=== PATIENT | female | born 1985 | race Caucasian/White ===

== ENCOUNTER 2018-07-27 05:45 | Day surgery (SDC) | payer OTHER ==
[2018-07-27] MEDS ORDERED: CEFAZOLIN 1 GM INJ (07:00)
[2018-07-27] MEDS ORDERED: METOCLOPRAMIDE 10 MG INJ (07:00)
[2018-07-27] MEDS ORDERED: DEXAMETHASONE 4 MG/ML 5 ML INJ (07:00)
[2018-07-27] MEDS: BUPIVACAINE 0.5%/EPI (SDV) 30 ML INJ (07:18)
[2018-07-27] MEDS ORDERED: DIPHENHYDRAMINE 50 MG INJ IV (07:30)
[2018-07-27] MEDS ORDERED: HYDROmorphONE 1 MG/5 ML IV SYRINGE IV (07:30)
[2018-07-27] MEDS ORDERED: IPRATROPIUM (NEB) 0.5 MG/2.5 ML AMP HHN (07:30)
[2018-07-27] MEDS ORDERED: MEPERIDINE 25 MG INJ IV (07:30)
[2018-07-27] MEDS ORDERED: hydrALAzine 20 MG INJ IV (07:30)
[2018-07-27] MEDS ORDERED: FENTAnyl 50 MCG/ML VIAL IV (07:30)
[2018-07-27] MEDS ORDERED: LABETALOL HCL 20MG INJ IV (07:30)
[2018-07-27] MEDS ORDERED: LEVALBUTEROL (NEB) 1.25 MG/0.5 ML AMP HHN (07:30)
[2018-07-27] MEDS ORDERED: MIDAZOLAM 1 MG/ML 2 ML INJ (07:39)
[2018-07-27] MEDS ORDERED: PROPOFOL 20 ML (07:40)
[2018-07-27] MEDS ORDERED: FENTAnyl 50 MCG/ML VIAL ×2 (07:40→07:59)
[2018-07-27] MEDS ORDERED: ROCURONIUM 50 MG INJ (07:56)
[2018-07-27] MEDS ORDERED: GLYCOPYRROLATE 0.4 MG INJ (07:56)
[2018-07-27] MEDS ORDERED: NEOSTIGMINE 3 MG/3 ML SYRINGE (07:56)
[2018-07-27] MEDS ORDERED: LIDOCAINE 2% (SDV) 5 ML INJ (07:56)
[2018-07-27] MEDS ORDERED: SUCCINYLCHOLINE CHLORIDE 100 MG/5 ML SYG IV (07:56)
[2018-07-27] MEDS ORDERED: ONDANSETRON 4 MG INJ (07:57)
[2018-07-27] MEDS ORDERED: ROPIVACAINE 0.5 % 30 ML VIAL (07:57)
[2018-07-27] MEDS ORDERED: morphine 2 MG INJ IV (08:30)
[2018-07-27] MEDS ORDERED: ONDANSETRON 4 MG INJ IV (08:30)
[2018-07-27] MEDS ORDERED: OXYCODONE/ACETAMINOPHEN (5/325) TAB PO ×2 (08:30)
[2018-07-27] MEDS: HYDROmorphONE 1 MG/5 ML IV SYRINGE IV ×2 (08:50→09:01)
[2018-07-27] MEDS: FENTAnyl 50 MCG/ML VIAL IV (09:06)
[2018-07-27] MEDS: KETOROLAC 30 MG INJ IV (09:07)
[2018-07-27] MEDS: ONDANSETRON 4 MG INJ IV (09:07)
== END 2018-07-27 10:00 | disposition home or self-care (01) ==
LOC: SDS 05:45
DX: K40.90 Unilateral inguinal hernia, without obstruction or gangrene, not specified as recurrent (principal); J45.909 Unspecified asthma, uncomplicated; Z88.0 Allergy status to penicillin
CPT/HCPCS: 49505